=== PATIENT | female | born 1995 | race Caucasian/White ===

== ENCOUNTER 2021-10-17 17:51 | Emergency (ER) | payer OTHER ==
[~2021-10-17] VITALS: Ht 152.4 cm; Wt 74.8 kg
[2021-10-17] MEDS ORDERED: PRENATAL + DHA1 EAC1 PO (18:01)
== END 2021-10-18 10:29 | disposition home or self-care (01) ==
LOC: ER 17:51
DX: I80.8 Phlebitis and thrombophlebitis of other sites (principal)

== ENCOUNTER 2023-01-09 11:18 | Outpatient (CLI) | payer OTHER ==
[~2023-01-09 11:18] MED LIST: ENOXAPARIN80 MG/0.8; FAMOTIDINE20 MG; KETO10TA2 PO; LOVENOX40 MG/0.4 SUBCUTANEO; PERCOCET 5-3251 EACH PO; PRENATAL + DHA1 EAC1 PO
== END 2023-01-09 11:22 | disposition home or self-care (01) ==
LOC: NUCLEAR 11:18
PROVIDERS: ATTEND Internal Medicine Hematology & Oncology
DX: I82.B12 Acute embolism and thrombosis of left subclavian vein (principal); D68.61 Antiphospholipid syndrome; O00.01 Abdominal pregnancy with intrauterine pregnancy; E72.11 Homocystinuria; E72.12 Methylenetetrahydrofolate reductase deficiency